=== PATIENT | male | born 1940 | race Caucasian/White ===

== ENCOUNTER → 2018-03-24 | Outpatient (CLI) | payer MEDICARE ==
[~2018-03-24] MED LIST: OMNIPAQUE 350 MG/ML, 100ML BOTTLE ONE
== END | disposition home or self-care (01) ==
LOC: CFH 14:26
PROVIDERS: ATTEND Family Medicine
DX: I67.82 Cerebral ischemia (principal); G31.89 Other specified degenerative diseases of nervous system; R90.82 White matter disease, unspecified; E05.90 Thyrotoxicosis, unspecified without thyrotoxic crisis or storm; G31.84 Mild cognitive impairment of uncertain or unknown etiology
CPT/HCPCS: 70470; 76536; 82565; Q9967

== ENCOUNTER → 2019-03-01 | Outpatient (CLI) | payer MEDICARE | END | disposition home or self-care (01) | LOC: CFH 14:24 | PROVIDERS: ATTEND Registered Nurse | DX: I08.8 Other rheumatic multiple valve diseases (principal); I10 Essential (primary) hypertension; E78.5 Hyperlipidemia, unspecified; I25.2 Old myocardial infarction; Z87.891 Personal history of nicotine dependence | CPT/HCPCS: 93306 ==

== ENCOUNTER → 2020-02-08 | Outpatient (CLI) | payer MEDICARE, OTHER ==
[~2020-02-08] MED LIST changes: +ASCO500T8 PO; +ASPI81TA45 PO; +ATEN1TAB3 PO; +ATOR10TA9 PO; +DOCU-180 PO; +FLAX1CAP PO; +LISI5TAB7 PO; +MULT-257 PO; +NIAC500T8 PO; +OMEG1CAP23 PO; -OMNIPAQUE 350 MG/ML, 100ML BOTTLE ONE
== END | disposition home or self-care (01) ==
LOC: CFH 12:02
PROVIDERS: ATTEND Specialist
DX: C88.0 Waldenstrom macroglobulinemia (principal); C69.62 Malignant neoplasm of left orbit; C69.61 Malignant neoplasm of right orbit
CPT/HCPCS: 76536